=== PATIENT | female | born 1965 | race Hispanic/Latino ===

== ENCOUNTER 2018-11-17 12:01 | Outpatient (CLI) | payer OTHER | END 2018-11-17 12:02 | disposition home or self-care (01) | LOC: PF 12:01 | PROVIDERS: ATTEND Internal Medicine | DX: R06.02 Shortness of breath (principal); C18.2 Malignant neoplasm of ascending colon | CPT/HCPCS: 94010; 94729 ==

== ENCOUNTER 2021-01-03 14:00 | Outpatient (CLI) | payer MEDICARE ==
--- NOTE | 2021-01-04 09:05 | Magnetic Resonance Report ---
MRI BREAST BILATERAL WITH AND WITHOUT CONTRAST, 01/03/2021 CLINICAL INFORMATION / INDICATION: MALIGNANT NEOPLASM OF UPPER INNER QUAD OF LT BREAST. Recently diag nosed left breast invasive ductal carcinoma. History of left breast fibroadenoma. TECHNIQUE: Axial T1 and T2-weighted fat sat images were obtained precontrast. Gadolinium-based contra st was injected intravenously and serial axial T1 weighted images with fat saturation were obtained. 3-D MIP projections, kinetic analysis, and subtraction imaging were utilized to evaluate. A dedicated 8-channel breast coil was used for image acquisition. COMPARISON: No prior relevant imaging studies are available at this time for comparison. FINDINGS: BREAST DENSITY: Scattered areas of fibroglandular density. BACKGROUND ENHANCEMENT: Moderate background enhancement within both breasts. RIGHT BREAST: No dominant mass or suspicious area of enhancement in the right breast. LEFT BREAST: The recently biopsied breast cancer is seen posteriorly along the retroareolar region ap proximately 4 cm from the nipple and approximately 3 mm from the chest wall measuring 1.7 x 1.5 cm on image 293 of series 6. The patient's reported previously biopsied 2:00 posterior fibroadenoma is see n on image 37 of series 6 measuring 6.3 x 5.5 mm located 4-5 mm from the chest wall and 5-6 cm from t he nipple. No other mass or suspicious area of enhancement is identified. AXILLAE: There are two nonspecific prominent superior left axillary nodes seen measuring approximatel y 7 mm in short axis dimension with a cortical thickness of 3 mm on image 369 of series 6. No other s ignificant adenopathy. ADDITIONAL FINDINGS: Limited imaging of the thorax and upper abdomen demonstrates no focal abnormalit y. IMPRESSION: 1. Left breast cancer as above without additional MRI evidence of malignancy in either breast. 2. Additional left breast mass as above likely represents the patient's previously biopsied fibroaden debora. Please correlate with the clinical findings. 3. Nonspecific prominent left axillary nodes as above. Follow up recommendation: Surgical consult BI-RADS Category 6: Known Biopsy-Proven Malignancy. Signer Name: Mau Schumacher MD Signed: 01/04/2021 9:00 AM Workstation Name: [email or web address]
== END 2021-01-03 14:01 | disposition home or self-care (01) ==
LOC: SPVIMAG 14:00
PROVIDERS: ATTEND Surgery
DX: C50.212 Malignant neoplasm of upper-inner quadrant of left female breast (principal); N63.20 Unspecified lump in the left breast, unspecified quadrant
CPT/HCPCS: A9575; C8908; 77049